=== PATIENT | female | born 1975 | race Two or more races ===

== ENCOUNTER 2019-06-18 08:39 | Emergency (ER) | payer MEDICAID ==
[~2019-06-18] VITALS: Ht 157.5 cm; Wt 75.3 kg
--- NOTE | 2019-06-18 08:53 | NUR ---
worsening L sided numbness and pain x 2 days. -slurring, - facial droop, - weakness noted. Patient a/ox4, breathing even and unlabored, no sob noted, needs attended. Kept comfortable.
--- NOTE | 2019-06-18 09:11 | NUR ---
iv line established, blood drawn and sent to lab
[2019-06-18 09:16] LABS: BASOPHILS # (AUTO) 0.1 /CMM (0.0-0.2); BASOPHILS % (AUTO) 1.3 % (0.0-2.0); EOSINOPHILS % (AUTO) 1.9 % (0.0-6.0); HEMATOCRIT 30 % (33-45); HEMOGLOBIN 8.9 g/dL (11.5-14.8); LYMPHOCYTES % (AUTO) 17.9 % (20.0-44.0); MEAN CORPUSCULAR HGB CONC 30 g/dl (31.0-36.0); MEAN CORPUSCULAR VOLUME 61 fL (82-100); MONOCYTES # (AUTO) 0.6 /CMM (0.1-1.30); MONOCYTES % (AUTO) 9.9 % (2.0-12.0); PLATELET COUNT (AUTO) 268 /CMM (150-450); RED BLOOD CELL COUNT(AUTO) 4.88 MIL/uL (4.0-5.2); WHITE BLOOD COUNT (AUTO) 5.7 K/uL (4.3-11.0)
--- NOTE | 2019-06-18 09:22 | NUR ---
Hannah henriquez in [facility] - 06/18/19 at 4703 by OANH LENA MACHADO [phone]
[2019-06-18 09:24] LABS: CALCIUM, SERUM 9.3 mg/dL (8.5-10.1); CARBON DIOXIDE 28 mmol/L (21-32); CHLORIDE 107 mmol/L (98-107); CREATININE 0.7 mg/dL (0.6-1.3); GLUCOSE 111 mg/dL (74-106); POTASSIUM 4.2 mmol/L (3.5-5.1); SODIUM SERUM 141 mmol/L (136-145); UREA NITROGEN, BLOOD 13 mg/dL (7-18)
[2019-06-18 09:44] LABS: EOSINOPHILS % (MANUAL) 1 % (0-4); LYMPHOCYTES % (MANUAL) 16 % (16-48); MONOCYTES % (MANUAL) 6 % (0-11.0); NEUTROPHILS % (MANUAL) 77 (42-76)
[2019-06-18 10:51] VITALS: BP 123/78
--- NOTE | 2019-06-18 10:51 | NUR ---
IV removed. Catheter intact and site benign. Pressure and 4x4 applied to site. No bleeding noted.Patient ambulatory with steady gait, no distress noted. Patient discharged to home in stable condition. Written and verbal after care instructions given. Patient verbalizes understanding of instruction.
== END 2019-06-18 10:52 | disposition home or self-care (01) ==
LOC: ER 08:39
DX: R20.0 Anesthesia of skin (principal); R20.2 Paresthesia of skin; R94.31 Abnormal electrocardiogram [ECG] [EKG]
CPT/HCPCS: 36415; 70450-TC; 71045-TC; 80048-TC; 84484-TC; 85025-TC

== ENCOUNTER 2021-03-01 23:08 | Emergency (ER) | payer MEDICAID ==
[~2021-03-01] VITALS: Ht 157.5 cm; Wt 70.3 kg
[2021-03-01 23:24] VITALS: BP 146/88
[2021-03-01] MEDS ORDERED: FAMOTIDINE (20 MG) 20 MG TABLET PO ONE (23:30)
[2021-03-01] MEDS ORDERED: diphenhydrAMINE HCL 50 MG CAPSULE PO ONE (23:30)
[2021-03-01] MEDS ORDERED: CETI10CA PO (23:33)
[2021-03-01] MEDS ORDERED: FAMO-131 PO (23:33)
[2021-03-01] MEDS ORDERED: diphenhydrAMINE HCL 50 MG CAPSULE ONE (23:38)
[2021-03-01] MEDS ORDERED: FAMOTIDINE (20 MG) 20 MG TABLET ONE (23:38)
--- NOTE | 2021-03-01 23:40 | NUR ---
Patient discharged to home in stable condition. Written and verbal after care instructions given. Patient verbalizes understanding of instruction. PT ambulatory with a steady gait
== END 2021-03-01 23:50 | disposition home or self-care (01) ==
LOC: ER 23:15
DX: L50.9 Urticaria, unspecified (principal); I10 Essential (primary) hypertension
CPT/HCPCS: 99283; Q0163